=== PATIENT | female | born 1985 | race Caucasian/White ===

== ENCOUNTER 2016-07-11 11:22 | Emergency (ER) | payer SELFPAY ==
[2016-07-11 12:18] VITALS: BP 122/82; PULSE 118; TEMP 98.3; BMI 36.8
[2016-07-11 12:34] LABS: LEUKOCYTES/URINE NEG (NEGATIVE); NITRITE/URINE NEG (NEGATIVE); RBC/URINE 0-2 (0-5); URINE OCCULT BLOOD NEG (NEG/TRACE); WBC/URINE 0-2 (0-5)
[2016-07-11 12:36] LABS: MPV 8.2 fL (7.4-10.4)
[2016-07-11 12:54] LABS: BLOOD UREA NITROGEN 8 MG/DL (7-17); CALCULATED OSMOLALITY 274 MOs/Kg (270-290); CHLORIDE 98 mEq/L (98-107); GLUCOSE 392 MG/DL (70-99); SODIUM LEVEL 135 mEq/L (137-146); TOTAL PROTEIN 8.6 G/DL (6.3-8.2)
[2016-07-11 13:30] LABS: SEG NEUTROPHIL 51 % (45-76)
[2016-07-11] MEDS ORDERED: NS 1,000 ML IV ONE (15:51)
[2016-07-11] MEDS ORDERED: REGULAR INSULIN 100 UNITS/ML - 3 ML VIAL IV ONE (15:51)
--- NOTE | 2016-07-11 16:22 | EDPRACDOC ---
- General Information Chief Complaint: Female Urogenital Problems Stated Complaint: LOWER ABDOMINAL PAIN - POSITIVE PREG TEST Time Seen by Provider: 07/11/16 15:47 Information Source: Patient Mode Of Arrival: Car Home Medications: Home Medications Metformin HCl 1,000 mg PO BID 04/10/15 Amoxicillin 500 mg PO BID #20 capsule 05/11/16 Hydrocodone Bit/Acetaminophen [Hydrocodon-Acetaminophen 5-325] 1 tab PO Q6H PRN #10 tab 05/11/16 Allergies/Adverse Reactions: Allergies Allergy/AdvReac Type Severity Reaction Status Date / Time latex [Latex] Allergy Intermediate RASH Verified 05/11/16 13:02 tramadol HCl [From Ultram] AdvReac Mild Unknown/See Verified 05/11/16 13:02 Comments - History of Present Illness Onset: 1 WEEK HPI: PT HAS HAD LOWER ABD PAIN FOR THE PAST WEEK. SHE TOOK A HOME TEST LAST NIGHT. SHE CAME IN TODAY TO GET AN US. THE PT REPORTS THAT SHE'S BEEN TAKING HER METFORMIN. PT SAID THAT HER BS IS ALWAYS HIGH. UNFORTUNATELY PT HAD TO WAIT IN THE WAITING ROOM FOR A LONG TIME, AND IS VERY ANTSY UPON MY ARRIVAL TO THE ROOM. SHE JUST WANTS AN US. Pain Location: Reports: Suprapubic Pain Context: Reports: Spontaneous Pain Radiation: Reports: No Radiation Last Menstrual Period: UNKNOWN : Yes Control Method: Reports: None Oral Intake: Normal Urinary Output: Normal Other History: PT HAS HAD AN UNKN AMT OF PREGNANCIES. SHE SAID THAT SHE DOES NOT WANT TO TALK ABOUT IT. SHE HAS NOT HAD ANY CHILDREN. ED Past Medical History - Patient Medical History Neurological History: Reports: Seizures Psychological History: Denies: Depression Systemic History: Reports: Diabetes Surgical History: Reports: No Significant History - Social Medical History Smoking Status: Current some day smoker EDM Review of Systems - Review of Systems ROS Negative Except as Marked: Yes All systems reviewed and were negative except as marked Gastrointestinal: Pain - Physical Exam Constitutional: Alert (Awake), No apparent distress Oriented to: Time, Person, Place Last recorded Vital Signs: Last Vital Signs Temp 98.3 F 07/11/16 12:13 Pulse 118 07/11/16 12:13 Resp 16 07/11/16 12:13 BP 122/82 07/11/16 12:13 Pulse Ox 98 07/11/16 12:13 Oxygen Pulse Oxygen Saturation 98 O2 Device Room Air Oxygen Flow Rate Fraction of Inspired Oxygen ( FIO2) - HEENT Head: Normal ( normocephalic) Eye Exam: Normal (PERRL, EOMI, Sclera white) Oropharynx: Membranes Dry ENT EAC: Normal TMJ: Normal Nose: No Symptoms Reported (septum midline) Neck: Normal (FROM, trachea at midline) - Respiratory/Cardiovascular Respiratory: Normal - CTA Cardiovascular: Tachycardia - GI Auscultation: Normal (NABS) Palpation: Normal (Soft,No rebound or guarding, non distended) Tenderness: Non tender Camacho's Sign: Negative - Musculoskeletal Back: Normal (Non-Tender) Extremities: Normal (Normal tone, Pulses 2+ No cyanosis or edema, FROM) - Integumentary Skin: Normal, Warm, Dry Lymphatics: Normal (no adenopathy) - Neurologic Memory Impaired: Normal Motor Function: Normal (Normal tone, Pulses 2+ No cyanosis or edema, FROM) Cranial Nerve: Normal (CN II-X11 intact sensation, strength 5/5) Cerebellar: Normal Mood Description: Normal Perception: Normal - Results 07/11/16 12:15 07/11/16 12:15 WBC 13.1 xk/uL (3.8-10.8) H 07/11/16 12:15 RBC 5.64 xM/uL (4.20-5.40) H 07/11/16 12:15 Hgb 13.0 g/dL (12.0-16.0) 07/11/16 12:15 Hct 39.9 % (36-47) 07/11/16 12:15 MCV 71 fL (81-99) L 07/11/16 12:15 MCH 23.1 pg (27-32) L 07/11/16 12:15 MCHC 32.6 g/dl (33-36) L 07/11/16 12:15 RDW 15.2 % (11.5-14.5) H 07/11/16 12:15 Plt Count 295 xk/uL (130-400) 07/11/16 12:15 MPV 8.2 fL (7.4-10.4) 07/11/16 12:15 Neut % (Auto) Cancelled 07/11/16 12:15 Lymph % (Auto) Cancelled 07/11/16 12:15 Addison % (Auto) Cancelled 07/11/16 12:15 Eos % (Auto) Cancelled 07/11/16 12:15 Baso % (Auto) Cancelled 07/11/16 12:15 Absolute Neuts (auto) Cancelled 07/11/16 12:15 Absolute Lymphs (auto) Cancelled 07/11/16 12:15 Seg Neuts % (Manual) 51 % (45-76) 07/11/16 12:15 Band Neutrophils % 1 % (0-5) 07/11/16 12:15 Lymphocytes % (Manual) 42 % (17-44) 07/11/16 12:15 Monocytes % (Manual) 4 % (0-10) 07/11/16 12:15 Eosinophils % (Manual) 2 % (0-5) 07/11/16 12:15 Absolute Neutrophils 6.81 xk/uL (1.7-8.2) 07/11/16 12:15 Absolute Lymphocytes 5.50 xk/uL (0.65-4.75) H 07/11/16 12:15 Atypical Lymphocytes Occ 07/11/16 12:15 Platelet Estimate Norm (NORMAL) 07/11/16 12:15 RBC Morphology 1+ micro 07/11/16 12:15 Sodium 135 mEq/L (137-146) L 07/11/16 12:15 Potassium 3.7 mEq/L (3.5-5.1) 07/11/16 12:15 Chloride 98 mEq/L (98-107) 07/11/16 12:15 Carbon Dioxide 26 mMOL/L (22-33) 07/11/16 12:15 Anion Gap 15 mEq/L (8-16) 07/11/16 12:15 BUN 8 MG/DL (7-17) 07/11/16 12:15 Creatinine 0.50 MG/DL (0.52-1.04) L 07/11/16 12:15 Estimated GFR (MDRD) > 60 mL/min (>=60) 07/11/16 12:15 Glucose 392 MG/DL (70-99) H 07/11/16 12:15 Calculated Osmolality 274 MOs/Kg (270-290) 07/11/16 12:15 Calcium 9.0 MG/DL (8.4-10.2) 07/11/16 12:15 Total Bilirubin 0.4 MG/DL (0.2-1.3) 07/11/16 12:15 AST 28 IU/L (14-36) 07/11/16 12:15 ALT 45 IU/L (9-52) 07/11/16 12:15 Alkaline Phosphatase 100 IU/L (38-126) 07/11/16 12:15 Total Protein 8.6 G/DL (6.3-8.2) H 07/11/16 12:15 Albumin 4.0 G/DL (3.5-5.0) 07/11/16 12:15 Urine Color Yellow 07/11/16 12:15 Urine Clarity Clear 07/11/16 12:15 Urine pH 6.0 (5.0-8.0) 07/11/16 12:15 Ur Specific [place] 1.010 (1.003-1.035) 07/11/16 12:15 Urine Protein Neg (NEG/TRACE) 07/11/16 12:15 Urine Glucose (UA) 3+ (NEGATIVE) H 07/11/16 12:15 Urine Ketones Neg (NEGATIVE) 07/11/16 12:15 Urine Occult Blood Neg (NEG/TRACE) 07/11/16 12:15 Urine Nitrite Neg (NEGATIVE) 07/11/16 12:15 Urine Bilirubin Neg (NEGATIVE) 07/11/16 12:15 Urine Urobilinogen <2.0 MG/DL (0-1) 07/11/16 12:15 Ur Leukocyte Esterase Neg (NEGATIVE) 07/11/16 12:15 Urine RBC 0-2 (0-5) 07/11/16 12:15 Urine WBC 0-2 (0-5) 07/11/16 12:15 Ur Epithelial Cells 2+ 07/11/16 12:15 Urine Test Pos (NEGATIVE) H 07/11/16 12:05 Lab Results 07/11/16 07/11/16 07/11/16 12:15 12:15 12:15 WBC 13.1 H RBC 5.64 H Hgb 13.0 Hct 39.9 MCV 71 L MCH 23.1 L MCHC 32.6 L RDW 15.2 H Plt Count 295 MPV 8.2 Neut % (Auto) Cancelled Lymph % (Auto) Cancelled Addison % (Auto) Cancelled Eos % (Auto) Cancelled Baso % (Auto) Cancelled Absolute Neuts (auto) Cancelled Absolute Lymphs (auto) Cancelled Seg Neuts % (Manual) 51 Band Neutrophils % 1 Lymphocytes % (Manual) 42 Monocytes % (Manual) 4 Eosinophils % (Manual) 2 Absolute Neutrophils 6.81 Absolute Lymphocytes 5.50 H Atypical Lymphocytes Occ Platelet Estimate Norm RBC Morphology 1+ micro Sodium 135 L Potassium 3.7 Chloride 98 Carbon Dioxide 26 Anion Gap 15 BUN 8 Creatinine 0.50 L Estimated GFR (MDRD) > 60 Glucose 392 H Calculated Osmolality 274 Calcium 9.0 Total Bilirubin 0.4 AST 28 ALT 45 Alkaline Phosphatase 100 Total Protein 8.6 H Albumin 4.0 Urine Color Yellow Urine Clarity Clear Urine pH 6.0 Ur Specific [place] 1.010 Urine Protein Neg Urine Glucose (UA) 3+ H Urine Ketones Neg Urine Occult Blood Neg Urine Nitrite Neg Urine Bilirubin Neg Urine Urobilinogen <2.0 Ur Leukocyte Esterase Neg Urine RBC 0-2 Urine WBC 0-2 Ur Epithelial Cells 2+ Urine Test 07/11/16 12:05 WBC RBC Hgb Hct MCV MCH MCHC RDW Plt Count MPV Neut % (Auto) Lymph % (Auto) Addison % (Auto) Eos % (Auto) Baso % (Auto) Absolute Neuts (auto) Absolute Lymphs (auto) Seg Neuts % (Manual) Band Neutrophils % Lymphocytes % (Manual) Monocytes % (Manual) Eosinophils % (Manual) Absolute Neutrophils Absolute Lymphocytes Atypical Lymphocytes Platelet Estimate RBC Morphology Sodium Potassium Chloride Carbon Dioxide Anion Gap BUN Creatinine Estimated GFR (MDRD) Glucose Calculated Osmolality Calcium Total Bilirubin AST ALT Alkaline Phosphatase Total Protein Albumin Urine Color Urine Clarity Urine pH Ur Specific [place] Urine Protein Urine Glucose (UA) Urine Ketones Urine Occult Blood Urine Nitrite Urine Bilirubin Urine Urobilinogen Ur Leukocyte Esterase Urine RBC Urine WBC Ur Epithelial Cells Urine Test Pos H - Additional Information I DID NOT HAVE AN OPPORTUNITY TO DO A PELVIC EXAM. PT LEFT THE ED WITHOUT GETTING IVFS OR INSULIN. I WAS UNABLE TO SPEAK WITH PT BEFORE SHE LEFT. - Departure Yes I personally saw and evaluated the patient. Disposition: Eloped Final Diagnosis: , Hyperglycemia Additional Instructions: PT LEFT BEFORE SHE COULD GET TREATMENT OR INSTRUCTIONS.
== END 2016-07-11 17:05 | disposition left against medical advice (07) ==
LOC: ED 11:22
DX: O24.119 Pre-existing type 2 diabetes mellitus, in pregnancy, unspecified trimester (principal); E11.65 Type 2 diabetes mellitus with hyperglycemia; Z3A.00 Weeks of gestation of pregnancy not specified
CPT/HCPCS: 36415; 80053; 81001; 81025; 84702; 85007; 85027; 86900; 86901; J3490